=== PATIENT | female | born 1955 | race Asian ===

== ENCOUNTER 2018-05-07 10:26 | Outpatient (CLI) | payer OTHER ==
[~2018-05-07] VITALS: Ht 152.4 cm; Wt 44.5 kg
[2018-05-07 12:19] VITALS: BP 125/66; Ht 152.4 cm; Wt 44.5 kg
== END 2018-05-07 12:52 | disposition home or self-care (01) ==
LOC: D.OPS 10:26
DX: M81.0 Age-related osteoporosis without current pathological fracture (principal)

== ENCOUNTER 2019-04-20 14:00 | Outpatient (CLI) | payer OTHER ==
[2018-05-07 12:19] VITALS: BMI 19.1
== END 2019-04-20 14:30 | disposition home or self-care (01) ==
LOC: D.MAMMO 14:00
PROVIDERS: ATTEND Family Medicine
DX: Z12.31 Encounter for screening mammogram for malignant neoplasm of breast (principal)

== ENCOUNTER 2019-08-31 09:44 | Outpatient (CLI) | payer MEDICARE, OTHER ==
[~2019-08-31] VITALS: Ht 154.9 cm; Wt 45.0 kg
[2019-08-31 10:33] VITALS: Ht 154.9 cm; Wt 45.0 kg
[2019-08-31] MEDS ORDERED: XALATAN 0.0052.5 ML EACH EYE (10:42)
== END 2019-08-31 11:11 | disposition home or self-care (01) ==
LOC: D.OPS 09:44
PROVIDERS: ATTEND Family Medicine
DX: M81.0 Age-related osteoporosis without current pathological fracture (principal)

== ENCOUNTER 2020-08-01 13:01 | Outpatient (CLI) | payer MEDICARE, OTHER ==
[~2020-08-01] VITALS: Ht 154.9 cm; Wt 44.5 kg
[~2020-08-01 13:01] MED LIST: XALATAN 0.0052.5 ML EACH EYE
[2020-08-01 14:15] VITALS: BP 145/75; Ht 154.9 cm; Wt 44.5 kg
--- NOTE | 2020-08-01 14:46 | NUR ---
1442 INFUSION HAS COMPLETED, TOLERATED WITHOUTOUT PROBLEMS, DENIES PROBLEMS. IV DC'D WITH CATH INTACT RELEASED AMB. ENCOURAGED TO STAY HYDRATED NEXT 24 HOURS AND CONTINUE WITH CALCIUM SUPPLEMENTS.
== END 2020-08-01 14:45 | disposition home or self-care (01) ==
LOC: D.OPS 13:01
PROVIDERS: ATTEND Family Medicine
DX: M81.0 Age-related osteoporosis without current pathological fracture (principal)